=== PATIENT | male | born 1955 | race Caucasian/White ===

== ENCOUNTER → 2024-05-12 | Outpatient (CLI) | payer MEDICARE, OTHER ==
--- NOTE | 2024-05-12 07:43 | CT ---
EXAMINATION TYPE: CT sinus wo con DATE OF EXAM: 05/12/2024 COMPARISON: None HISTORY: 69-year-old male J32.9, chronic sinusitis CT DLP: 699.4 mGycm Automated exposure control for dose reduction was used. TECHNIQUE: Noncontrast axial views of the paranasal sinuses were obtained. Coronal and sagittal recon structions performed. FINDINGS: PARANASAL SINUSES: Mild mucosal thickening floor of the right frontal sinus. Trace mucosal thickening scattered throughout the ethmoid air cells. Additional trace mucosal thickening sphenoid sinuses and left maxillary sinus. There is no air-fluid level. Reactive tristin- osteogenesis is not seen. There is no destruction of the osseous cordon of the paranasal sinuses. THE NASAL CAVITY: The osteomeatal complexes are patent. Slight leftward deviation of the anterior nasal septum. The imaged brain and orbits are normal in appearance. Globes slightly myopic in appearance. Mastoid air cells and middle ear cavities are well pneumatized. Reformatted images confirm above findings. IMPRESSION: 1. Scattered trace to mild mucosal thickening throughout the paranasal sinuses as above. Greatest kenney ng the floor of the right frontal sinus. 2. Leftward deviation of the anterior nasal septum. [facility], , 05/12/2024 7:41 AM
== END | disposition home or self-care (01) ==
LOC: RADCTMAIN 06:08
PROVIDERS: ATTEND Otolaryngology
CPT/HCPCS: 70486